=== PATIENT | male | born 1980 | race Caucasian/White ===

== ENCOUNTER 2024-09-08 10:14 | Inpatient (IN) | payer MEDICAID ==
[~2024-09-08] VITALS: Ht 162.6 cm; Wt 59.9 kg
[2024-09-08 10:46] LABS: BASOPHILS % 0.2 % (0.0-2.0); DIFFERENTIAL COMMENT 0; HEMATOCRIT. 40.9 % (42.0-52.0); HEMOGLOBIN. 14.4 g/dL (14.0-18.0); LYMPHOCYTES % 8.6 % (20.0-50.0); MEAN CORPUSCULAR HEMOGLOBIN 35.6 pg (28.0-32.0); MEAN CORPUSCULAR HGB CONC 35.2 g/dL (31.0-37.0); MEAN CORPUSCULAR VOLUME 101.2 fL (80.0-94.0); MEAN PLATELET VOLUME 8.3 fl (7.4-10.4); MONOCYTES % 2.6 % (2.0-8.0); NEUTROPHILS % 88.6 % (40.0-76.0); PLATELET 149 x1000/uL (130-400); RED BLOOD CELL COUNT 4.04 mill/uL (4.7-6.1); RED CELL DISTRIBUTION WIDTH 18.6 % (11.6-14.6)
[2024-09-08 10:53] LABS: CHLORIDE 106 mEq/L (98-107); POTASSIUM 3.5 mEq/L (3.5-5.1); SODIUM 142 mEq/L (136-145)
[2024-09-08 10:54] LABS: CARBON DIOXIDE 22 mEq/L (21-32)
[2024-09-08 10:55] LABS: CALCIUM 8.4 mg/dL (8.7-10.4)
[2024-09-08 10:59] LABS: CREATININE 0.5 mg/dL (0.6-1.3); GLUCOSE 399 mg/dL (70-105)
[2024-09-08 11:00] LABS: TROPONIN I HIGH SENSITIVITY 4 ng/L (3.0-53); UREA NITROGEN BLOOD 32 mg/dL (9-23)
[2024-09-08 11:01] LABS: ALANINE AMINOTRANSFERASE 47 IU/L (10-49); ALBUMIN 3.8 g/dL (3.2-4.8); ASPARTATE AMINOTRANSFERASE 18 IU/L (<34); D-DIMER 1.18 mg/L FEU (<0.50); PROTHROMBIN TIME 11.2 sec (9.6-11.0)
[2024-09-08 11:02] LABS: BILIRUBIN DIRECT 0.2 mg/dL (<=3.0); BILIRUBIN TOTAL 1.1 mg/dL (0.1-1.0); PROTEIN TOTAL 5.6 g/dL (6.0-8.3)
[2024-09-08] MEDS ORDERED: SULFAMETHOXAZOLE IV SCH (13:30)
[2024-09-08] MEDS ORDERED: DEXTROSE 50% WATER 50ML SYRINGE IV PRN (13:30)
[2024-09-08] MEDS ORDERED: ONDANSETRON HCL 4MG/2ML INJ IV PRN (13:30)
[2024-09-08] MEDS ORDERED: DOCUSATE SODIUM 100MG CAPSULE PO PRN (13:30)
[2024-09-08] MEDS ORDERED: TRIMETHOPRIM IV SCH (13:30)
[2024-09-08] MEDS ORDERED: WATER IV SCH (13:30)
[2024-09-08] MEDS ORDERED: MAGNESIUM/ALUMINUM HYDROXIDE/SIMETHICONE 30ML UDC PO PRN (13:30)
[2024-09-08] MEDS ORDERED: GUAIFENESIN 200MG/10ML SUGAR FREE UDC PO PRN (13:30)
[2024-09-08] MEDS ORDERED: DEXT 5% IV SCH (13:30)
[2024-09-08] MEDS ORDERED: ACETAMINOPHEN 325MG TABLET PO PRN (13:30)
[2024-09-08 14:04] LABS: BG BASE EXCESS -1.6 mmol/L (-2.0-3.0); BG CARBOXYHEMOGLOBIN 0.8 % (0.5-1.5); BG DEOXYHEMOGLOBIN 6.6 % (0.0-5.0); BG FRACTION INSPIRED OXYGEN 32; BG HCO3 ACT 21.9 mmol/L (21.0-28.0); BG METHEMOGLOBIN 0.3 % (0.5-1.5); BG OXYGEN SATURATION 93.3 % (94.0-98.0); BG OXYHEMOGLOBIN 92.3 % (94.0-98.0); BG PCO2 33.9 mmHg (35.0-48.0); BG PH 7.428 (7.350-7.450); BG PO2 65.7 mmHg (83.0-108.0); BG SAMPLE SITE LEFT RADIAL; BG TOTAL HEMOGLOBIN 15.1 g/dL (13.5-17.5); BG VENT MODE NASAL CANNULA
[2024-09-08 15:07] VITALS: BP 137/90; PULSE 90; RESP 32; TEMP 36.8
[2024-09-08 15:09] LABS: THYROID STIMULATING HORMONE 0.54 uIU/mL (0.55-4.78)
[2024-09-08 15:12] LABS: LACTIC ACID 2.4 mmol/L (0.4-2.0)
[2024-09-08 15:16] LABS: FOLIC ACID (FOLATE) SERUM 15.42 ng/mL (>5.38)
[2024-09-08 16:00] VITALS: BP 128/94; PULSE 89; RESP 17; TEMP 36.4; O2SAT 97
[2024-09-08 16:50] LABS: VITAMIN B12 SERUM 540 pg/mL (211-911)
[2024-09-08] MEDS ORDERED: BLOOD SUGAR DIAGNOSTIC STRIP TEST SCH (17:40)
[2024-09-08] MEDS: BLOOD SUGAR DIAGNOSTIC STRIP TEST SCH (17:40)
[2024-09-08] MEDS ORDERED: INSULIN LISPRO 100 UNITS/ML SUBCUT SCH (18:10)
[2024-09-08] MEDS: METHYLPREDNISOLONE SOD SUCC 40MG/ML (ACT-O-VIAL) IV NR (18:56)
[2024-09-08] MEDS: SULFAMETHOXAZOLE/TRIMETHOPRIM 800/160MG TABLET PO SCH (18:56)
[2024-09-08] MEDS: ENOXAPARIN 40MG/0.4ML SYR SUBCUT SCH (18:57)
[2024-09-08] MEDS: INSULIN LISPRO 100 UNITS/ML SUBCUT SCH (19:04)
[2024-09-08 20:00] VITALS: BP 151/102; PULSE 82; RESP 20; TEMP 36.7; O2SAT 98
[2024-09-08] MEDS: SODIUM CHLORIDE 0.45% 500 ML IV ONE (21:12)
[2024-09-08] MEDS: INSULIN GLARGINE 100 UNITS/ML SUBCUT NR (21:12)
[2024-09-08] MEDS ORDERED: LABE100T9 PO (22:25)
[2024-09-08] MEDS ORDERED: ATOR20TA65 PO (22:25)
[2024-09-09] VITALS: BP 113/75; PULSE 77; RESP 19; TEMP 36.8; O2SAT 94
[2024-09-09 04:00] VITALS: BP 126/82; PULSE 77; RESP 19; TEMP 36.6; O2SAT 94
[2024-09-09 07:58] VITALS: BP 144/90; PULSE 65; RESP 19; TEMP 36.3; O2SAT 90
[2024-09-09 08:26] LABS: CLARITY URINE CLEAR (CLEAR); COLOR URINE YELLOW (YELLOW); GLUCOSE URINE 3+ (NEGATIVE); KETONES URINE NEGATIVE (NEGATIVE); LEUKOCYTE ESTERASE URINE NEGATIVE (NEGATIVE); NITRITE URINE NEGATIVE (NEGATIVE); OCCULT BLOOD URINE NEGATIVE (NEGATIVE); PROTEIN URINE TRACE (NEGATIVE)
[2024-09-09] MEDS ORDERED: LIDOCAINE HCL 1% 10 MG/ML 10ML VIAL ONE (08:36)
[2024-09-09 08:43] LABS: BACTERIA URINE NONE SEEN; RBC URINE 0-2 /hpf (0-2); SQUAMOUS EPITHELIAL CELL URINE RARE /lpf (RARE/1+); WBC URINE 0-2 /hpf (0-2); YEAST URINE NONE SEEN
[2024-09-09 09:01] LABS: HEMATOCRIT. 39.8 % (42.0-52.0); HEMOGLOBIN. 13.8 g/dL (14.0-18.0); MEAN CORPUSCULAR HEMOGLOBIN 35.3 pg (28.0-32.0); MEAN CORPUSCULAR HGB CONC 34.8 g/dL (31.0-37.0); MEAN CORPUSCULAR VOLUME 101.6 fL (80.0-94.0); PLATELET 134 x1000/uL (130-400); RED BLOOD CELL COUNT 3.92 mill/uL (4.7-6.1); RED CELL DISTRIBUTION WIDTH 18.2 % (11.6-14.6); WHITE BLOOD COUNT 6.3 x1000/uL (4.5-11.0)
[2024-09-09 09:05] LABS: DIFFERENTIAL COMMENT 1
[2024-09-09 09:06] LABS: CHLORIDE 104 mEq/L (98-107); POTASSIUM 3.7 mEq/L (3.5-5.1); SODIUM 141 mEq/L (136-145)
[2024-09-09 09:07] LABS: CALCIUM 8.8 mg/dL (8.7-10.4); CARBON DIOXIDE 25 mEq/L (21-32)
[2024-09-09 09:12] LABS: CREATININE 0.5 mg/dL (0.6-1.3); UREA NITROGEN BLOOD 27 mg/dL (9-23)
[2024-09-09 09:20] LABS: GLUCOSE 401 mg/dL (70-105)
[2024-09-09 10:16] LABS: PLATELET ESTIMATE NORMAL
[2024-09-09 10:17] LABS: ANISOCYTOSIS 2+
[2024-09-09 11:52] VITALS: BP 131/89; PULSE 84; RESP 20; TEMP 36.2; O2SAT 92
[2024-09-09] MEDS ORDERED: VALG450T15 PO (14:10)
[2024-09-09] MEDS ORDERED: BICT1TAB PO (14:10)
[2024-09-09 14:40] LABS: *AMPHETAMINES SCREEN URINE NEGATIVE (NEGATIVE); *BARBITURATES SCREEN URINE NEGATIVE (NEGATIVE); *BENZODIAZEPINES SCREEN URINE NEGATIVE (NEGATIVE); *COCAINE SCREEN URINE NEGATIVE (NEGATIVE); CANNABINOID URINE SCREEN NEGATIVE (NEGATIVE); ECSTASY MDMA SCREEN URINE NEGATIVE (NEGATIVE); METHADONE URINE SCREEN NEGATIVE (NEGATIVE); OPIATES URINE SCREEN NEGATIVE (NEGATIVE); PHENCYCLIDINE URINE SCREEN NEGATIVE (NEGATIVE)
[2024-09-09 16:00] VITALS: BP 134/90; PULSE 81; RESP 19; TEMP 36.5; O2SAT 90
[2024-09-09] MEDS: INSULIN LISPRO 100 UNITS/ML SUBCUT SCH ×2 (17:17)
[2024-09-09 20:00] VITALS: BP 119/81; PULSE 94; RESP 20; TEMP 36.5; O2SAT 96
[2024-09-09] MEDS ORDERED: DIPHENHYDRAMINE 50MG/ML VIAL IM PRN (20:45)
[2024-09-09] MEDS: INSULIN GLARGINE 100 UNITS/ML SUBCUT SCH (21:17)
[2024-09-09] MEDS: VANCOMYCIN 1.25GM/250ML 250 ML IV NR (22:28)
[2024-09-09] MEDS ORDERED: IOHEXOL-350 100 ML BOTTLE ONE (23:20)
[2024-09-10] VITALS (9 sets, daily range): BP systolic 113–139; BP diastolic 79–105; PULSE 86–140; RESP 18–66; TEMP 36.3–37.4; O2SAT 89–99
[2024-09-10] MEDS: VANCOMYCIN 750MG PREMIX 150 ML IV SCH (08:06)
[2024-09-10] MEDS: BIKTARVY 50/200/25 PO SCH (15:30)
[2024-09-10 16:56] LABS: BG BASE EXCESS 0.4 mmol/L (-2.0-3.0); BG CARBOXYHEMOGLOBIN 1.3 % (0.5-1.5); BG DEOXYHEMOGLOBIN 9.7 % (0.0-5.0); BG FRACTION INSPIRED OXYGEN 100; BG HCO3 ACT 23.3 mmol/L (21.0-28.0); BG OXYGEN SATURATION 90.2 % (94.0-98.0); BG PCO2 33.1 mmHg (35.0-48.0); BG PH 7.466 (7.350-7.450); BG PO2 55.3 mmHg (83.0-108.0); BG SAMPLE SITE RIGHT BRACHIAL; BG TOTAL HEMOGLOBIN 15.2 g/dL (13.5-17.5); BG VENT MODE MASK - NRB
[2024-09-10] MEDS: VALGANCICLOVIR 450 MG PO SCH (17:12)
[2024-09-10] MEDS: FUROSEMIDE 40MG/4ML VIAL IVP NR (17:56)
[2024-09-10] MEDS ORDERED: VALGANCICLOVIR HYDROCHLORIDE 450MG TABLET PO SCH ×2 (21:00)
[2024-09-10] MEDS: INSULIN GLARGINE 100 UNITS/ML SUBCUT SCH (21:54)
[2024-09-10] MEDS: ACETAMINOPHEN 325MG TABLET PO PRN (22:27)
[2024-09-10] MEDS: IPRATROPIUM/ALBUTEROL 0.5-3(2.5)MG/3ML NEB HHN SCH (22:49)
[2024-09-10] MEDS: BUDESONIDE 0.5MG/2ML NEB HHN SCH (22:50)
[2024-09-11] VITALS (17 sets, daily range): BP systolic 104–139; BP diastolic 74–90; PULSE 94–140; RESP 26–60; TEMP 36.1–37; O2SAT 91–96
[2024-09-11 06:48] LABS: CARBON DIOXIDE 25 mEq/L (21-32); CHLORIDE 101 mEq/L (98-107); POTASSIUM 3.4 mEq/L (3.5-5.1); SODIUM 138 mEq/L (136-145)
[2024-09-11 06:49] LABS: CALCIUM 8.7 mg/dL (8.7-10.4)
[2024-09-11 06:54] LABS: CREATININE 0.5 mg/dL (0.6-1.3); UREA NITROGEN BLOOD 18 mg/dL (9-23)
[2024-09-11 06:55] LABS: HEMATOCRIT. 43.7 % (42.0-52.0); MEAN CORPUSCULAR HEMOGLOBIN 35.4 pg (28.0-32.0); MEAN CORPUSCULAR HGB CONC 34.4 g/dL (31.0-37.0); MEAN CORPUSCULAR VOLUME 102.8 fL (80.0-94.0); MEAN PLATELET VOLUME 8.7 fl (7.4-10.4); PLATELET 127 x1000/uL (130-400); RED BLOOD CELL COUNT 4.25 mill/uL (4.7-6.1); WHITE BLOOD COUNT 6.6 x1000/uL (4.5-11.0)
[2024-09-11 07:06] LABS: DIFFERENTIAL COMMENT 1
[2024-09-11 07:17] LABS: GLUCOSE 231 mg/dL (70-105)
[2024-09-11] MEDS ORDERED: MEDICATION NOT ON FORMULARY EA (Bictegrav/Emtricit/Tenofov Ala (Biktarvy 50-200-25 mg Ta PO SCH (09:00)
[2024-09-11] MEDS: POTASSIUM CHLORIDE 20MEQ TABLET SR PO NR (09:34)
[2024-09-11 09:56] LABS: BG CARBOXYHEMOGLOBIN 0.8 % (0.5-1.5); BG DEOXYHEMOGLOBIN 0.7 % (0.0-5.0); BG FRACTION INSPIRED OXYGEN 100; BG METHEMOGLOBIN 0.3 % (0.5-1.5); BG OXYGEN SATURATION 99.3 % (94.0-98.0); BG OXYHEMOGLOBIN 98.2 % (94.0-98.0); BG PCO2 32.4 mmHg (35.0-48.0); BG PO2 160.9 mmHg (83.0-108.0); BG SAMPLE SITE LEFT RADIAL; BG TOTAL HEMOGLOBIN 15.4 g/dL (13.5-17.5); BG VENT MODE HIGH FLOW
[2024-09-11 10:09] LABS: ANISOCYTOSIS 1+; PLATELET ESTIMATE NORMAL
[2024-09-11] MEDS: IPRATROPIUM/ALBUTEROL 0.5-3(2.5)MG/3ML NEB HHN PRN (16:11)
[2024-09-11] MEDS: METHYLPREDNISOLONE SOD SUCC 40MG/ML (ACT-O-VIAL) IV SCH (19:04)
[2024-09-12] VITALS (16 sets, daily range): BP systolic 114–142; BP diastolic 74–88; PULSE 79–106; RESP 27–49; TEMP 36.4–36.6; O2SAT 94–98
[2024-09-12 06:15] LABS: HEMATOCRIT. 36.2 % (42.0-52.0); HEMOGLOBIN. 12.6 g/dL (14.0-18.0); MEAN CORPUSCULAR HEMOGLOBIN 35.5 pg (28.0-32.0); MEAN CORPUSCULAR HGB CONC 34.9 g/dL (31.0-37.0); MEAN CORPUSCULAR VOLUME 101.8 fL (80.0-94.0); MEAN PLATELET VOLUME 8.8 fl (7.4-10.4); PLATELET 120 x1000/uL (130-400); RED BLOOD CELL COUNT 3.56 mill/uL (4.7-6.1); RED CELL DISTRIBUTION WIDTH 18.8 % (11.6-14.6); WHITE BLOOD COUNT 4.1 x1000/uL (4.5-11.0)
[2024-09-12 06:46] LABS: CARBON DIOXIDE 25 mEq/L (21-32); CHLORIDE 98 mEq/L (98-107); POTASSIUM 4.7 mEq/L (3.5-5.1); SODIUM 133 mEq/L (136-145)
[2024-09-12 06:47] LABS: CALCIUM 8.4 mg/dL (8.7-10.4)
[2024-09-12 06:52] LABS: CREATININE 0.7 mg/dL (0.6-1.3); GLUCOSE 249 mg/dL (70-105); UREA NITROGEN BLOOD 24 mg/dL (9-23)
[2024-09-12 06:54] LABS: PHOSPHORUS 2.9 mg/dL (2.5-4.9)
[2024-09-12] MEDS: VANCOMYCIN 1GM/200ML PMX (BAXTER) IV SCH (06:57)
[2024-09-12 07:08] LABS: DIFFERENTIAL COMMENT 1
[2024-09-12] MEDS ORDERED: MAGNESIUM 2 G PREMIX 50 ML IV NR (07:15)
[2024-09-12] MEDS: MAGNESIUM 2 G PREMIX 50 ML IV NR (08:43)
[2024-09-12] MEDS: INSULIN LISPRO 100 UNITS/ML SUBCUT SCH (08:48)
[2024-09-12 09:00] LABS: BG BASE EXCESS 0.5 mmol/L (-2.0-3.0); BG CARBOXYHEMOGLOBIN 1.3 % (0.5-1.5); BG DEOXYHEMOGLOBIN 1.8 % (0.0-5.0); BG FRACTION INSPIRED OXYGEN 100; BG METHEMOGLOBIN 0.3 % (0.5-1.5); BG OXYGEN SATURATION 98.2 % (94.0-98.0); BG OXYHEMOGLOBIN 96.6 % (94.0-98.0); BG PCO2 35.3 mmHg (35.0-48.0); BG SAMPLE SITE RIGHT RADIAL; BG TOTAL HEMOGLOBIN 14.7 g/dL (13.5-17.5); BG VENT MODE HIGH FLOW
[2024-09-12] MEDS: INSULIN GLARGINE 100 UNITS/ML SUBCUT SCH ×2 (10:29→21:38)
[2024-09-12 11:37] LABS: TRIGLYCERIDE 303 mg/dL (0-150)
[2024-09-12 11:38] LABS: LDL CHOLESTEROL 117 mg/dL (5-100)
[2024-09-12 11:39] LABS: CHOLESTEROL 175 mg/dL (<200); HDL CHOLESTEROL < 20 mg/dL (>55)
[2024-09-12 11:41] LABS: T4 FREE 0.79 ng/dL (0.89-1.76)
[2024-09-12 11:42] LABS: THYROID STIMULATING HORMONE 0.22 uIU/mL (0.55-4.78)
[2024-09-12 13:07] LABS: % CD 3 POS. LYMPHOCYTES 39.1 % (57.5-86.2); % CD 4 POS. LYMPHOCYTES 13.8 % (30.8-58.5); % CD 8 POS. LYMPH 27.4 % (12.0-35.5)
[2024-09-12] MEDS ORDERED: NON FORMULARY MED XX SCH (20:30)
[2024-09-12] MEDS: IPRATROPIUM/ALBUTEROL 0.5-3(2.5)MG/3ML NEB HHN SCH (21:00)
[2024-09-12 21:01] LABS: ANISOCYTOSIS 1+; PLATELET ESTIMATE NORMAL
[2024-09-12] MEDS: INSULIN LISPRO 100 UNITS/ML SUBCUT NR (21:37)
[2024-09-12] MEDS: ATORVASTATIN CALCIUM 40MG TABLET PO SCH (21:39)
[2024-09-12 22:26] LABS: CREATINE KINASE MB FRACTION < 0.5 ng/mL (0.5-3.6)
[2024-09-12 22:28] LABS: CREATINE KINASE < 15 IU/L (46-171); TROPONIN I HIGH SENSITIVITY < 4 ng/L (3.0-53)
[2024-09-12 23:46] LABS: CHLORIDE 99 mEq/L (98-107); POTASSIUM 4.6 mEq/L (3.5-5.1); SODIUM 130 mEq/L (136-145)
[2024-09-12 23:47] LABS: CALCIUM 8.4 mg/dL (8.7-10.4); CARBON DIOXIDE 20 mEq/L (21-32)
[2024-09-12 23:52] LABS: CREATININE 0.9 mg/dL (0.6-1.3); UREA NITROGEN BLOOD 35 mg/dL (9-23)
[2024-09-13] VITALS (18 sets, daily range): BP systolic 114–145; BP diastolic 69–94; PULSE 74–122; RESP 14–54; TEMP 36.4–36.7; O2SAT 85–98
[2024-09-13] MEDS: INSULIN REGULAR (HUMULIN R) 1000UNITS/10ML VIAL IV NR (00:08)
[2024-09-13 00:16] LABS: GLUCOSE 476 mg/dL (70-105)
[2024-09-13] MEDS ORDERED: INSULIN REGULAR (HUMULIN R) 1000UNITS/10ML VIAL IV NR (00:45)
[2024-09-13] MEDS: AZITHROMYCIN 500MG/250ML 250 ML IV SCH (01:55)
[2024-09-13] MEDS: INSULIN LISPRO 100 UNITS/ML SUBCUT NR (02:22)
[2024-09-13] MEDS: BICTEGRAVIR 50MG/EMTRICITABINE 200MG/TENOFOVIR ALA 25MG PO SCH (02:35)
[2024-09-13] MEDS: VALGANCICLOVIR HYDROCHLORIDE 450MG TABLET PO SCH (02:36)
[2024-09-13] MEDS: METHYLPREDNISOLONE SOD SUCC 125MG/2ML (ACT-O-VIAL) IV SCH (02:45)
[2024-09-13 06:24] LABS: HEMOGLOBIN. 11.4 g/dL (14.0-18.0); MEAN CORPUSCULAR HEMOGLOBIN 35.5 pg (28.0-32.0); MEAN CORPUSCULAR HGB CONC 34.4 g/dL (31.0-37.0); MEAN PLATELET VOLUME 8.9 fl (7.4-10.4); PLATELET 149 x1000/uL (130-400); RED CELL DISTRIBUTION WIDTH 18.5 % (11.6-14.6)
[2024-09-13 06:36] LABS: DIFFERENTIAL COMMENT 1
[2024-09-13 06:41] LABS: CHLORIDE 101 mEq/L (98-107); POTASSIUM 4.1 mEq/L (3.5-5.1); SODIUM 134 mEq/L (136-145)
[2024-09-13 06:42] LABS: CALCIUM 8.6 mg/dL (8.7-10.4); CARBON DIOXIDE 23 mEq/L (21-32)
[2024-09-13 06:47] LABS: CREATINE KINASE MB FRACTION 0.7 ng/mL (0.5-3.6); CREATININE 0.6 mg/dL (0.6-1.3); UREA NITROGEN BLOOD 29 mg/dL (9-23)
[2024-09-13 06:48] LABS: TROPONIN I HIGH SENSITIVITY 4 ng/L (3.0-53)
[2024-09-13 06:57] LABS: CREATINE KINASE < 15 IU/L (46-171); GLUCOSE 255 mg/dL (70-105)
[2024-09-13 07:59] LABS: BG BASE EXCESS -0.2 mmol/L (-2.0-3.0); BG CARBOXYHEMOGLOBIN 0.8 % (0.5-1.5); BG DEOXYHEMOGLOBIN 2.2 % (0.0-5.0); BG FRACTION INSPIRED OXYGEN 90; BG HCO3 ACT 23.3 mmol/L (21.0-28.0); BG OXYGEN SATURATION 97.8 % (94.0-98.0); BG PCO2 34.4 mmHg (35.0-48.0); BG PH 7.449 (7.350-7.450); BG PO2 97.7 mmHg (83.0-108.0); BG SAMPLE SITE RIGHT RADIAL; BG TOTAL HEMOGLOBIN 11.7 g/dL (13.5-17.5); BG VENT MODE HIGH FLOW
[2024-09-13] MEDS ORDERED: CEFEPIME 2GM IN DEXT 5% 100ML IV SCH (15:15)
[2024-09-13 15:44] LABS: PLATELET ESTIMATE NORMAL
[2024-09-13] MEDS: SULFAMETHOXAZOLE/TRIMETHOPRIM 800/160MG TABLET PO SCH (21:28)
[2024-09-13] MEDS: CEFEPIME 2GM/50ML DUPLEX 50 ML IV SCH (21:29)
[2024-09-13] MEDS: INSULIN GLARGINE 100 UNITS/ML SUBCUT SCH (21:31)
[2024-09-14] VITALS (16 sets, daily range): BP systolic 117–150; BP diastolic 71–86; PULSE 72–104; RESP 18–44; TEMP 36.2–36.7; O2SAT 91–99
[2024-09-14 04:10] LABS: *HIV-1 RNA BY PCR <20 copies/mL (.)
[2024-09-14 07:03] LABS: CARBON DIOXIDE 22 mEq/L (21-32); CHLORIDE 100 mEq/L (98-107); POTASSIUM 5.4 mEq/L (3.5-5.1); SODIUM 135 mEq/L (136-145)
[2024-09-14 07:05] LABS: CALCIUM 8.3 mg/dL (8.7-10.4)
[2024-09-14 07:09] LABS: CREATININE 0.6 mg/dL (0.6-1.3); GLUCOSE 221 mg/dL (70-105)
[2024-09-14 07:10] LABS: UREA NITROGEN BLOOD 30 mg/dL (9-23)
[2024-09-14] MEDS ORDERED: SODIUM POLYSTYRENE SULFONATE 15 G/60 ML BOT PO ONE (07:45)
[2024-09-14 08:26] LABS: BG BASE EXCESS -0.1 mmol/L (-2.0-3.0); BG CARBOXYHEMOGLOBIN 1.1 % (0.5-1.5); BG DEOXYHEMOGLOBIN 2.5 % (0.0-5.0); BG FRACTION INSPIRED OXYGEN 65; BG METHEMOGLOBIN 0.3 % (0.5-1.5); BG OXYGEN SATURATION 97.5 % (94.0-98.0); BG OXYHEMOGLOBIN 96.1 % (94.0-98.0); BG PH 7.429 (7.350-7.450); BG PO2 94.8 mmHg (83.0-108.0); BG SAMPLE SITE RIGHT BRACHIAL; BG VENT MODE HIGH FLOW
[2024-09-14] MEDS: SODIUM ZIRCONIUM CYCLOSILICATE 10GM/PACKET PO NR (08:26)
[2024-09-14 09:09] LABS: PROLACTIN 16.1 ng/mL (3.9-22.7)
[2024-09-14 13:26] LABS: HEMATOCRIT. 30.7 % (42.0-52.0); HEMOGLOBIN. 10.6 g/dL (14.0-18.0); MEAN CORPUSCULAR HEMOGLOBIN 35.1 pg (28.0-32.0); MEAN CORPUSCULAR HGB CONC 34.4 g/dL (31.0-37.0); MEAN CORPUSCULAR VOLUME 102.2 fL (80.0-94.0); MEAN PLATELET VOLUME 8.6 fl (7.4-10.4); PLATELET 152 x1000/uL (130-400); RED BLOOD CELL COUNT 3.01 mill/uL (4.7-6.1); WHITE BLOOD COUNT 4.5 x1000/uL (4.5-11.0)
[2024-09-14 13:33] LABS: DIFFERENTIAL COMMENT 1
[2024-09-14 14:45] LABS: PLATELET ESTIMATE NORMAL
[2024-09-14 14:46] LABS: ANISOCYTOSIS 1+
[2024-09-14] MEDS: CEFEPIME 2GM/50ML DUPLEX 50 ML IV SCH (15:46)
[2024-09-14 18:11] LABS: POTASSIUM 4.4 mEq/L (3.5-5.1)
[2024-09-14] MEDS: ACETYLCYSTEINE 200MG/ML 20% VIAL 4ML INH SCH (22:28)
[2024-09-15] VITALS (18 sets, daily range): BP systolic 130–147; BP diastolic 75–90; PULSE 64–91; RESP 16–37; TEMP 35.9–36.9; O2SAT 86–98
[2024-09-15] MEDS: INSULIN LISPRO 100 UNITS/ML SUBCUT SCH (08:45)
[2024-09-15 10:04] LABS: BASOPHILS % 0.1 % (0.0-2.0); DIFFERENTIAL COMMENT 0; HEMATOCRIT. 32.7 % (42.0-52.0); HEMOGLOBIN. 11.2 g/dL (14.0-18.0); LYMPHOCYTES % 10.5 % (20.0-50.0); MEAN CORPUSCULAR HEMOGLOBIN 35.1 pg (28.0-32.0); MEAN CORPUSCULAR HGB CONC 34.2 g/dL (31.0-37.0); MEAN CORPUSCULAR VOLUME 102.4 fL (80.0-94.0); MEAN PLATELET VOLUME 8.7 fl (7.4-10.4); MONOCYTES % 1.3 % (2.0-8.0); NEUTROPHILS % 88.1 % (40.0-76.0); PLATELET 163 x1000/uL (130-400); RED BLOOD CELL COUNT 3.19 mill/uL (4.7-6.1); RED CELL DISTRIBUTION WIDTH 18.2 % (11.6-14.6); WHITE BLOOD COUNT 3.8 x1000/uL (4.5-11.0)
[2024-09-15 10:10] LABS: CHLORIDE 101 mEq/L (98-107); POTASSIUM 4.2 mEq/L (3.5-5.1); SODIUM 137 mEq/L (136-145)
[2024-09-15 10:11] LABS: CALCIUM 8.6 mg/dL (8.7-10.4); CARBON DIOXIDE 24 mEq/L (21-32)
[2024-09-15 10:16] LABS: CREATININE 0.5 mg/dL (0.6-1.3); GLUCOSE 180 mg/dL (70-105)
[2024-09-15 10:17] LABS: UREA NITROGEN BLOOD 28 mg/dL (9-23)
[2024-09-15] MEDS: FLUCONAZOLE 100MG TABLET PO SCH (13:53)
[2024-09-15 15:07] LABS: HUMAN GROWTH HORMONE < 0.1 ng/mL (0.0-10.0)
[2024-09-16] VITALS (15 sets, daily range): BP systolic 129–148; BP diastolic 73–92; PULSE 70–87; RESP 28–43; TEMP 36.3–36.6; O2SAT 96–99
[2024-09-16 07:12] LABS: HEMATOCRIT. 30.3 % (42.0-52.0); HEMOGLOBIN. 10.8 g/dL (14.0-18.0); MEAN CORPUSCULAR HGB CONC 35.6 g/dL (31.0-37.0); MEAN CORPUSCULAR VOLUME 101.1 fL (80.0-94.0); MEAN PLATELET VOLUME 8.6 fl (7.4-10.4); PLATELET 178 x1000/uL (130-400); RED BLOOD CELL COUNT 2.99 mill/uL (4.7-6.1); RED CELL DISTRIBUTION WIDTH 18.7 % (11.6-14.6); WHITE BLOOD COUNT 3.7 x1000/uL (4.5-11.0)
[2024-09-16 07:19] LABS: DIFFERENTIAL COMMENT 1
[2024-09-16 07:29] LABS: CHLORIDE 100 mEq/L (98-107); POTASSIUM 4.2 mEq/L (3.5-5.1); SODIUM 136 mEq/L (136-145)
[2024-09-16 07:32] LABS: CALCIUM 8.6 mg/dL (8.7-10.4); CARBON DIOXIDE 24 mEq/L (21-32)
[2024-09-16 07:37] LABS: CREATININE 0.5 mg/dL (0.6-1.3); GLUCOSE 158 mg/dL (70-105); UREA NITROGEN BLOOD 28 mg/dL (9-23)
[2024-09-16 07:38] LABS: ALANINE AMINOTRANSFERASE 59 IU/L (10-49); ALBUMIN 3.4 g/dL (3.2-4.8); THYROID STIMULATING HORMONE 0.57 uIU/mL (0.55-4.78)
[2024-09-16 07:39] LABS: ASPARTATE AMINOTRANSFERASE 25 IU/L (<34); BILIRUBIN DIRECT 0.1 mg/dL (<=3.0); BILIRUBIN TOTAL 0.3 mg/dL (0.1-1.0); PROTEIN TOTAL 5.1 g/dL (6.0-8.3)
[2024-09-16 12:05] LABS: PLATELET ESTIMATE NORMAL
[2024-09-16 12:06] LABS: ANISOCYTOSIS 1+
[2024-09-16 18:21] LABS: BG BASE EXCESS 0.1 mmol/L (-2.0-3.0); BG CARBOXYHEMOGLOBIN 0.1 % (0.5-1.5); BG DEOXYHEMOGLOBIN 7.4 % (0.0-5.0); BG FRACTION INSPIRED OXYGEN 45; BG HCO3 ACT 24.2 mmol/L (21.0-28.0); BG METHEMOGLOBIN 0.3 % (0.5-1.5); BG OXYGEN SATURATION 92.6 % (94.0-98.0); BG OXYHEMOGLOBIN 92.2 % (94.0-98.0); BG PCO2 37.5 mmHg (35.0-48.0); BG PH 7.428 (7.350-7.450); BG PO2 63.8 mmHg (83.0-108.0); BG SAMPLE SITE LEFT RADIAL; BG VENT MODE HIGH FLOW
[2024-09-17] VITALS (12 sets, daily range): BP systolic 127–160; BP diastolic 75–93; PULSE 75–103; RESP 21–39; TEMP 36.3–36.4; O2SAT 92–97
[2024-09-17 09:07] LABS: HEMOGLOBIN. 10.8 g/dL (14.0-18.0); MEAN CORPUSCULAR HEMOGLOBIN 35.9 pg (28.0-32.0); MEAN CORPUSCULAR VOLUME 102.7 fL (80.0-94.0); MEAN PLATELET VOLUME 8.7 fl (7.4-10.4); PLATELET 184 x1000/uL (130-400); RED BLOOD CELL COUNT 3.02 mill/uL (4.7-6.1); RED CELL DISTRIBUTION WIDTH 18.3 % (11.6-14.6)
[2024-09-17 09:10] LABS: DIFFERENTIAL COMMENT 1
[2024-09-17 09:28] LABS: CHLORIDE 101 mEq/L (98-107); POTASSIUM 4.8 mEq/L (3.5-5.1); SODIUM 132 mEq/L (136-145)
[2024-09-17 09:29] LABS: CALCIUM 8.6 mg/dL (8.7-10.4); CARBON DIOXIDE 24 mEq/L (21-32)
[2024-09-17 09:34] LABS: CREATININE 0.6 mg/dL (0.6-1.3); GLUCOSE 190 mg/dL (70-105); UREA NITROGEN BLOOD 32 mg/dL (9-23)
[2024-09-17 15:31] LABS: NUCLEATED RED BLOOD CELLS 1 /100 WBC
[2024-09-17 15:32] LABS: GIANT PLATELETS FEW; PLATELET ESTIMATE NORMAL
[2024-09-17 18:08] LABS: BG BASE EXCESS -4.3 mmol/L (-2.0-3.0); BG CARBOXYHEMOGLOBIN 0.7 % (0.5-1.5); BG DEOXYHEMOGLOBIN 2.9 % (0.0-5.0); BG FRACTION INSPIRED OXYGEN 34; BG HCO3 ACT 19.1 mmol/L (21.0-28.0); BG METHEMOGLOBIN 0.1 % (0.5-1.5); BG OXYGEN SATURATION 97.1 % (94.0-98.0); BG OXYHEMOGLOBIN 96.3 % (94.0-98.0); BG PCO2 29.6 mmHg (35.0-48.0); BG PH 7.427 (7.350-7.450); BG PO2 95.9 mmHg (83.0-108.0); BG SAMPLE SITE RIGHT RADIAL; BG TOTAL HEMOGLOBIN 11.2 g/dL (13.5-17.5); BG VENT MODE NASAL CANNULA
[2024-09-17] MEDS: CLONIDINE 0.1MG TABLET PO PRN (18:26)
[2024-09-18] VITALS (13 sets, daily range): BP systolic 135–158; BP diastolic 78–96; PULSE 66–106; RESP 19–44; TEMP 35.8–36.8; O2SAT 91–98
[2024-09-18 06:27] LABS: HEMATOCRIT. 33.9 % (42.0-52.0); HEMOGLOBIN. 11.4 g/dL (14.0-18.0); MEAN CORPUSCULAR HEMOGLOBIN 35.2 pg (28.0-32.0); MEAN CORPUSCULAR HGB CONC 33.8 g/dL (31.0-37.0); MEAN CORPUSCULAR VOLUME 104.2 fL (80.0-94.0); MEAN PLATELET VOLUME 8.6 fl (7.4-10.4); PLATELET 192 x1000/uL (130-400); RED BLOOD CELL COUNT 3.25 mill/uL (4.7-6.1); RED CELL DISTRIBUTION WIDTH 18.1 % (11.6-14.6); WHITE BLOOD COUNT 3.7 x1000/uL (4.5-11.0)
[2024-09-18 06:34] LABS: DIFFERENTIAL COMMENT 1
[2024-09-18 06:40] LABS: CHLORIDE 99 mEq/L (98-107); POTASSIUM 5.8 mEq/L (3.5-5.1); SODIUM 132 mEq/L (136-145)
[2024-09-18 06:41] LABS: CALCIUM 8.7 mg/dL (8.7-10.4); CARBON DIOXIDE 21 mEq/L (21-32)
[2024-09-18 06:46] LABS: CREATININE 0.6 mg/dL (0.6-1.3); GLUCOSE 110 mg/dL (70-105); UREA NITROGEN BLOOD 25 mg/dL (9-23)
[2024-09-18 10:22] LABS: POTASSIUM 4.7 mEq/L (3.5-5.1)
[2024-09-18] MEDS: FLUCONAZOLE 200MG/5ML ORAL SYR PO SCH (11:36)
[2024-09-18] MEDS ORDERED: IPRATROPIUM/ALBUTEROL 0.5-3(2.5)MG/3ML NEB HHN PRN (15:00)
[2024-09-18 15:11] LABS: NUCLEATED RED BLOOD CELLS 1 /100 WBC; PLATELET ESTIMATE NORMAL
[2024-09-18 15:12] LABS: ANISOCYTOSIS 1+; GIANT PLATELETS FEW
[2024-09-18] MEDS ORDERED: IPRATROPIUM/ALBUTEROL 0.5-3(2.5)MG/3ML NEB HHN SCH (18:00)
[2024-09-18] MEDS: IPRATROPIUM/ALBUTEROL 0.5-3(2.5)MG/3ML NEB HHN SCH (20:13)
[2024-09-18] MEDS: METHYLPREDNISOLONE SOD SUCC 125MG/2ML (ACT-O-VIAL) IV SCH (21:44)
[2024-09-19] VITALS (17 sets, daily range): BP systolic 116–157; BP diastolic 78–96; PULSE 83–125; RESP 17–39; TEMP 36.2–36.6; O2SAT 94–98
[2024-09-19 06:41] LABS: HEMATOCRIT. 35.3 % (42.0-52.0); HEMOGLOBIN. 12.1 g/dL (14.0-18.0); MEAN CORPUSCULAR HEMOGLOBIN 35.5 pg (28.0-32.0); MEAN CORPUSCULAR HGB CONC 34.2 g/dL (31.0-37.0); MEAN PLATELET VOLUME 8.2 fl (7.4-10.4); PLATELET 219 x1000/uL (130-400); RED BLOOD CELL COUNT 3.39 mill/uL (4.7-6.1); RED CELL DISTRIBUTION WIDTH 18.2 % (11.6-14.6)
[2024-09-19 06:56] LABS: CARBON DIOXIDE 22 mEq/L (21-32); CHLORIDE 99 mEq/L (98-107); POTASSIUM 4.7 mEq/L (3.5-5.1); SODIUM 130 mEq/L (136-145)
[2024-09-19 06:57] LABS: CALCIUM 8.9 mg/dL (8.7-10.4)
[2024-09-19 07:02] LABS: CREATININE 0.6 mg/dL (0.6-1.3); GLUCOSE 172 mg/dL (70-105); UREA NITROGEN BLOOD 32 mg/dL (9-23)
[2024-09-19 07:06] LABS: DIFFERENTIAL COMMENT 1
[2024-09-19] MEDS: [UNRECOGNIZED DRUG - OTHER] PO SCH (14:49)
[2024-09-19 15:04] LABS: BG BASE EXCESS -2.5 mmol/L (-2.0-3.0); BG CARBOXYHEMOGLOBIN 0.9 % (0.5-1.5); BG DEOXYHEMOGLOBIN 5.2 % (0.0-5.0); BG FRACTION INSPIRED OXYGEN 21; BG HCO3 ACT 20.6 mmol/L (21.0-28.0); BG METHEMOGLOBIN 0.2 % (0.5-1.5); BG OXYGEN SATURATION 94.7 % (94.0-98.0); BG OXYHEMOGLOBIN 93.7 % (94.0-98.0); BG PCO2 31.1 mmHg (35.0-48.0); BG PO2 70.6 mmHg (83.0-108.0); BG SAMPLE SITE RIGHT RADIAL; BG TOTAL HEMOGLOBIN 13.3 g/dL (13.5-17.5); BG VENT MODE ROOM AIR
[2024-09-19 15:58] LABS: GIANT PLATELETS FEW; NUCLEATED RED BLOOD CELLS 1 /100 WBC; PLATELET ESTIMATE NORMAL; PLATELET SATELLITISM FEW
[2024-09-19] MEDS: SODIUM CHLORIDE 0.9% 250 ML IV ONE (18:07)
[2024-09-19] MEDS ORDERED: DOCUSATE SODIUM SUGAR FREE 100MG/10ML UDC NG PRN (20:57)
[2024-09-19] MEDS: DOCUSATE SODIUM SUGAR FREE 100MG/10ML UDC NG PRN (21:17)
[2024-09-20] VITALS (15 sets, daily range): BP systolic 112–131; BP diastolic 79–92; PULSE 101–131; RESP 22–43; TEMP 36.1–36.6; O2SAT 95–98
[2024-09-20] MEDS ORDERED: MORPHINE SULFATE 2 MG/ML INJ (NOT FOR IM USE) IV PRN (04:00)
[2024-09-20] MEDS: MORPHINE SULFATE 2 MG/ML INJ (NOT FOR IM USE) IV PRN (04:16)
[2024-09-20] MEDS: ENOXAPARIN 40MG/0.4ML SYR SUBCUT SCH (08:39)
[2024-09-20] MEDS: SODIUM CHLORIDE 0.9% 250 ML IV SCH (09:45)
[2024-09-20 11:30] LABS: MEAN CORPUSCULAR HEMOGLOBIN 36.4 pg (28.0-32.0); MEAN CORPUSCULAR HGB CONC 35.2 g/dL (31.0-37.0); MEAN CORPUSCULAR VOLUME 103.6 fL (80.0-94.0); MEAN PLATELET VOLUME 7.7 fl (7.4-10.4); PLATELET 216 x1000/uL (130-400); RED BLOOD CELL COUNT 3.29 mill/uL (4.7-6.1); RED CELL DISTRIBUTION WIDTH 18.6 % (11.6-14.6); WHITE BLOOD COUNT 5.2 x1000/uL (4.5-11.0)
[2024-09-20 11:32] LABS: DIFFERENTIAL COMMENT 1
[2024-09-20 11:44] LABS: CHLORIDE 101 mEq/L (98-107); POTASSIUM 4.5 mEq/L (3.5-5.1); SODIUM 134 mEq/L (136-145)
[2024-09-20 11:45] LABS: CARBON DIOXIDE 20 mEq/L (21-32)
[2024-09-20 11:46] LABS: CALCIUM 8.6 mg/dL (8.7-10.4)
[2024-09-20 11:50] LABS: CREATININE 0.6 mg/dL (0.6-1.3); GLUCOSE 144 mg/dL (70-105); UREA NITROGEN BLOOD 33 mg/dL (9-23)
[2024-09-20 12:07] LABS: ANISOCYTOSIS 2+; NUCLEATED RED BLOOD CELLS 1 /100 WBC; PLATELET ESTIMATE NORMAL
[2024-09-20] MEDS: SODIUM CHLORIDE 0.9% 1,000 ML IV SCH (14:24)
[2024-09-20] MEDS: VALGANCICLOVIR 50 MG/ML PO SCH (21:00)
[2024-09-20] MEDS ORDERED: VALGANCICLOVIR 50 MG/ML PO SCH (21:00)
[2024-09-20] MEDS: METHYLPREDNISOLONE SOD SUCC 40MG/ML (ACT-O-VIAL) IV SCH (22:54)
[2024-09-21] VITALS (15 sets, daily range): BP systolic 117–145; BP diastolic 78–89; PULSE 81–99; RESP 18–35; TEMP 35.6–36.6; O2SAT 96–99
[2024-09-21 06:34] LABS: HEMATOCRIT. 30.8 % (42.0-52.0); HEMOGLOBIN. 10.7 g/dL (14.0-18.0); MEAN CORPUSCULAR HEMOGLOBIN 36.2 pg (28.0-32.0); MEAN CORPUSCULAR HGB CONC 34.6 g/dL (31.0-37.0); MEAN CORPUSCULAR VOLUME 104.6 fL (80.0-94.0); MEAN PLATELET VOLUME 8.1 fl (7.4-10.4); PLATELET 173 x1000/uL (130-400); RED BLOOD CELL COUNT 2.94 mill/uL (4.7-6.1); RED CELL DISTRIBUTION WIDTH 18.4 % (11.6-14.6); WHITE BLOOD COUNT 4.5 x1000/uL (4.5-11.0)
[2024-09-21 06:43] LABS: DIFFERENTIAL COMMENT 1
[2024-09-21 06:44] LABS: CARBON DIOXIDE 20 mEq/L (21-32); CHLORIDE 103 mEq/L (98-107); POTASSIUM 4.5 mEq/L (3.5-5.1); SODIUM 134 mEq/L (136-145)
[2024-09-21 06:45] LABS: CALCIUM 8.2 mg/dL (8.7-10.4)
[2024-09-21 06:48] LABS: CREATININE 0.5 mg/dL (0.6-1.3)
[2024-09-21 06:49] LABS: GLUCOSE 90 mg/dL (70-105)
[2024-09-21 06:50] LABS: UREA NITROGEN BLOOD 28 mg/dL (9-23)
[2024-09-21 11:01] LABS: ANISOCYTOSIS 1+; PLATELET ESTIMATE NORMAL
[2024-09-22] VITALS (15 sets, daily range): BP systolic 114–134; BP diastolic 82–95; PULSE 92–133; RESP 18–43; TEMP 36.1–36.8; O2SAT 91–99
[2024-09-22] MEDS: METHYLPREDNISOLONE SOD SUCC 40MG/ML (ACT-O-VIAL) IV SCH (08:36)
[2024-09-22] MEDS ORDERED: PRED10TA MT ×2 (10:20)
[2024-09-22] MEDS ORDERED: LIP40 PO (10:20)
[2024-09-22] MEDS ORDERED: PRED5TAB MT (10:20)
[2024-09-22] MEDS ORDERED: VALG50SO PO (10:20)
[2024-09-22] MEDS ORDERED: SULF1TAB48 MT ×2 (10:20→16:05)
[2024-09-22] MEDS ORDERED: TOPUD PO (10:20)
[2024-09-22] MEDS ORDERED: METF-1150 MT (10:28)
[2024-09-22] MEDS: NA PHOS,M-B/NA PHOS,DI-BA ENEMA 118ML PR SCH (17:29)
[2024-09-23 09:07] LABS: ABSOLUTE LYMPHOCYTES 0.6 x10E3/uL (0.7-3.1); ABSOLUTE MONOCYTES 0.1 x10E3/uL (0.1-0.9); ABSOLUTE NEUTROPHILS 3.6 x10E3/uL (1.4-7.0); BASOPHILS 0 % (Not Estab.); EOSINOPHILS 0 % (Not Estab.); HEMATOCRIT 31.5 % (37.5-51.0); HEMOGLOBIN 10.6 g/dL (13.0-17.7); IMMATURE GRANULOCYTES 1 % (Not Estab.); LYMPHOCYTES 14 % (Not Estab.); MEAN CORPUSCULAR HEMOGLOBIN 35.8 pg (26.6-33.0); MEAN CORPUSCULAR HGB CONC. 33.7 g/dL (31.5-35.7); MEAN CORPUSCULAR VOLUME 106 fL (79-97); MONOCYTES 2 % (Not Estab.); NEUTROPHILS 83 % (Not Estab.); NUCLEATED RBC 1 % (0 - 0); PLATELETS 159 x10E3/uL (150-450); RBC 2.96 x10E6/uL (4.14-5.80); RED CELL DISTRIBUTION WIDTH 17.8 % (11.6-15.4); WBC 4.4 x10E3/uL (3.4-10.8)
[2024-09-23 15:10] LABS: % CD 3 POS. LYMPHOCYTES 32.4 % (57.5-86.2); % CD 4 POS. LYMPHOCYTES 11.7 % (30.8-58.5); % CD 8 POS. LYMPH 20.7 % (12.0-35.5); ABSOLUTE CD 3 194 /uL (622-2402); ABSOLUTE CD 4 HELPER 70 /uL (359-1519); ABSOLUTE CD 8 SUPPRESSOR 124 /uL (109-897); CD4/CD8 RATIO 0.57 (0.92-3.72)
== END 2024-09-22 21:00 | disposition home or self-care (01) | DRG 890 ==
LOC: ER 10:14 → 7WST 12:01 → 5EST 09-10 21:27
PROVIDERS: ADMIT Internal Medicine; ATTEND Internal Medicine
PROC: 02HV33Z Insertion of Infusion Device into Superior Vena Cava, Percutaneous Approach (ICD-10-PCS; principal; 2024-09-09)
PROC: B548ZZA Ultrasonography of Superior Vena Cava, Guidance (ICD-10-PCS; 2024-09-09)
PROC: 5A0955A Assistance with Respiratory Ventilation, Greater than 96 Consecutive Hours, High Flow/Velocity Cannula (ICD-10-PCS; 2024-09-10)
DX: A41.9 Sepsis, unspecified organism (principal); B20 Human immunodeficiency virus [HIV] disease; J96.01 Acute respiratory failure with hypoxia; J69.0 Pneumonitis due to inhalation of food and vomit; G93.49 Other encephalopathy; C71.9 Malignant neoplasm of brain, unspecified; B25.9 Cytomegaloviral disease, unspecified; B37.0 Candidal stomatitis; D68.9 Coagulation defect, unspecified; J18.9 Pneumonia, unspecified organism; E83.51 Hypocalcemia; E11.65 Type 2 diabetes mellitus with hyperglycemia; D72.810 Lymphocytopenia; R04.0 Epistaxis; E83.42 Hypomagnesemia; D69.6 Thrombocytopenia, unspecified; E78.5 Hyperlipidemia, unspecified; E03.8 Other specified hypothyroidism; R74.01 Elevation of levels of liver transaminase levels; D53.9 Nutritional anemia, unspecified; E87.1 Hypo-osmolality and hyponatremia; E07.81 Sick-euthyroid syndrome; R62.7 Adult failure to thrive; K76.0 Fatty (change of) liver, not elsewhere classified; E87.5 Hyperkalemia; G31.9 Degenerative disease of nervous system, unspecified; I25.10 Atherosclerotic heart disease of native coronary artery without angina pectoris; Z74.01 Bed confinement status; Z85.841 Personal history of malignant neoplasm of brain; Z92.3 Personal history of irradiation; Z92.21 Personal history of antineoplastic chemotherapy; I69.30 Unspecified sequelae of cerebral infarction; Z90.49 Acquired absence of other specified parts of digestive tract; Z88.0 Allergy status to penicillin; Z68.22 Body mass index [BMI] 22.0-22.9, adult
CPT/HCPCS: 36415; 36573; 36600; 71045; 71250; 71275; 76700; 80048; 80061; 80076; 80202; 80305; 81003; 82010; 82024; 82375; 82533; 82550; 82553; 82607; 82746; 82805; 82962; 83003; 83036; 83605; 83615; 83735; 83880; 83930; 84100; 84132; 84145; 84146; 84436; 84439; 84443; 84481; 84484; 85025; 85379; 86359; 86360; 87389; 87536; 92610; 93005; 93306; 93970; 94003; 94070; 94640; 94664; 94760; 98960; 99285; A4606; C1725; J0456; J0692; J1650; J1815; J1940; J2003; J2270; J2919; J3370; J3475; J7030; J7608; J7626; Q9967